=== PATIENT | female | born 1940 | race Caucasian/White ===

== ENCOUNTER → 2017-01-31 | Day surgery (SDC) | payer MEDICARE, BC ==
--- NOTE | 2017-01-29 15:46 | MH ---
cc: Pritesh ORTEZ M.D. DATE OF ADMISSION: 01/31/2017 ADMITTING DIAGNOSIS: Displaced fracture left olecranon ADMISSION HISTORY AND PHYSICAL This pleasant 76-year-old female is being admitted today for displaced a left olecranon fracture now for open reduction internal fixation. The patient sustained this 5 weeks ago in a trip and fall, she has had problems with a right ankle for almost a year and her right ankle gave out and she fell on her left elbow. OTHER PAST HISTORY: The patient has a history of a slight transient ischemic attack in the past for which she has been taking Plavix, otherwise no other medical problems. MEDICATIONS 1. Plavix. 2. Enalapril. REVIEW OF SYSTEMS Noncontributory. FAMILY HISTORY Noncontributory. PAST SURGICAL HISTORY: She has had a hysterectomy in the past. ALLERGIES She is allergic to PENICILLIN AND ASPIRIN. SOCIAL HISTORY: She smokes cigarettes and drinks alcohol. PHYSICAL EXAMINATION IN GENERAL: We find a 76-year female well-developed, well-nourished oriented x3 complaining of pain her left elbow. VITAL SIGNS: Blood pressure 126/82, pulse 88 regular, respirations 18, temperature 98.5, pulse oximetry 96% on room air. HEAD, EYES, EARS, NOSE, AND THROAT: Eyes Pupils equal, round, reactive to light and accommodation, extraocular muscles intact. Ears, nose, mouth clear. NECK: Supple. LUNGS: Clear. HEART: Regular rate. ABDOMEN: The abdomen was soft, positive bowel sounds, nontender. EXTREMITIES: The extremities reveal the left elbow to be tender, Unable to fully extend against gravity. NEUROVASCULAR: Neurovascularly intact to her fingers. IMPRESSION At this time is a completely displaced left olecranon fracture. PLAN Admission for open reduction internal fixation left olecranon fracture today. The patient given prescription postop pain control in the office. MD MARIAMA Mera/jovana /5:21 PM /3:43 PM
[~2017-01-31] VITALS: Ht 165.1 cm; Wt 69.7 kg
[~2017-01-31] MED LIST: *morphine SULFATE 8 MG/ML PERIprocedure ONLY ONE; ACETAMINOPHEN 1000 MG/100 ML VIAL IV ONE; ACETAMINOPHEN/HYDROcodone 325 MG/5 MG TAB PO PRN; BUPIVACAINE HCL PF 0.25% 30 ML VIAL ONE; CHLORHEXIDINE GLUCONATE 2 % 1 PACK (2 CLOTHS) TOPICAL PRN; CHLORHEXIDINE GLUCONATE 4% SOLN 120 ML BTL TOPICAL SCH; CLINDAMYCIN 900 MG/NS 100 ML IV SCH; DEXAMETHASONE SOD PHOS 4 MG/ML VIAL ONE; DO NOT ADM ANY ANTICOAGULANT DRUGS PRN; ENAL10TA7 PO; FAMOTIDINE 20 MG/2 ML VIAL ONE; INSULIN HUMAN REGULAR 1,000 UNITS/10 ML VIAL SQ PRN; LACTATED RINGER'S 1000 ML INJ 1,000 ML IV ONE; LACTATED RINGER'S 1000 ML IV PRN; MEPERIDINE HCL 50 MG/ML VIAL IM PRN; METOPROLOL TARTRATE 25 MG TAB PO PRN; MIDAZOLAM HCL 5 MG/5 ML VIAL ONE; NEOMYCIN/POLYMYXIN 1 ML G.U. IRRIGANT TOPICAL ONE; ONDANSETRON HCL 4 MG/2 ML VIAL IV PUSH ONE; ONDANSETRON ODT 4 MG TAB PO PRN; PLAV75TA29 PO; POVIDONE IODINE 5% (ANTISEPSIS KIT) 4 APPLICATIONS EACH NARE PRN; PROPOFOL 200 MG/20 ML AMP IV ONE; SODIUM CHLORID 0.9% 500 ML IV PRN; SODIUM CHLORIDE 0.9% INJ 100 ML ONE; ePHEDrine/NS 25 MG/5 ML SYR IV ONE; fentaNYL CITRATE 250 MCG/5 ML AMP ONE; methylPREDNISolone SOD SUCC 125 MG/2 ML VIAL ONE
[2017-01-31 08:19] VITALS: BP 166/93; PULSE 103; RESP 18; TEMP 98.9
[2017-01-31 08:41] LABS: AUTOMATED NEUTROPHIL # 5.6 TH/MM3 (1.8-7.7); BASOPHIL # 0.1 TH/MM3 (0-0.2); EOSINOPHIL # 0.1 TH/MM3 (0-0.4); EOSINOPHIL % 0.7 % (0.0-4.0); HEMATOCRIT 42.9 % (35.0-46.0); HEMO FLAGS DIFF FINAL; LYMPH % 28.6 % (9.0-44.0); LYMPHOCYTE # 2.5 TH/MM3 (1.0-4.8); MEAN CORPUSCULAR HGB CONC 33.7 % (32.0-36.0); MONO % 5.6 % (0.0-8.0); NEUT % 64.1 % (16.0-70.0); PLATELET COUNT 270 TH/MM3 (150-450); RED BLOOD COUNT 4.52 MIL/MM3 (4.00-5.30); RED CELL DISTRIBUTION WIDTH 14.4 % (11.6-17.2); WHITE BLOOD COUNT 8.8 TH/MM3 (4.0-11.0)
[2017-01-31 08:45] LABS: APTT (PATIENT) 25.6 SEC (24.3-30.1); PROTHROMBIN TIME - PATIENT 10.5 SEC (9.8-11.6)
[2017-01-31 08:50] LABS: ALT (GPT) 23 U/L (10-53); ANION GAP 9 MEQ/L (5-15); AST (GOT) 21 U/L (15-37); BLOOD UREA NITROGEN 8 MG/DL (7-18); CHLORIDE 109 MEQ/L (98-107); GLOMERULAR FILTRATION RATE 53 ML/MIN (>89); POTASSIUM 4.2 MEQ/L (3.5-5.1); SODIUM (NA) 143 MEQ/L (136-145)
[2017-01-31 08:53] LABS: ALKALINE PHOSPHATASE 72 U/L (45-117); TOTAL BILIRUBIN ADULT 0.4 MG/DL (0.2-1.0)
[2017-01-31 09:00] LABS: BACTERIA, URINE MOD /hpf; BLOOD, URINE TRACE (NEG); COMMENT (UR) CULTURE INDICATED; CULTURE IF INDICATED CULTURE INDICATED; GLUCOSE,URINE NEG (NEG); HYALINE CAST, URINE 4 /lpf (RARE); KETONE, URINE NEG (NEG); MUCUS URINE FEW /lpf (OCC); NITRITE,URINE NEG (NEG); SQUAMOUS EPITHELIAL CELL URINE 10 /hpf (0-5); TRANSITIONAL EPI CELLS, URINE <1 /hpf; URINE COLOR YELLOW (YELLW/STRAW)
--- NOTE | 2017-01-31 11:42 | RADRPT ---
EXAM DATE/TIME: 01/31/2017 11:21 [facility] COMPARISON: FLUOROSCOPY PORTABLE UP TO 1HR, January 31, 2017, 0:00. INDICATIONS : Post-op ORIF left olecranon. MEDICAL HISTORY : None. SURGICAL HISTORY : None. ENCOUNTER: Initial ACUITY: 1 day PAIN SCORE: Non-responsive. LOCATION: Left upper extremity FINDINGS: The patient is post plating and screw fixation of an olecranon process fracture. There is excellent a lignment of the fracture fragments post plating. CONCLUSION: 1. Excellent alignment of the fracture fragments post plating. Cecil Shepherd MD on January 31, 2017 at 11:39 Board Certified Radiologist. This report was verified electronically.
[2017-01-31 14:16] VITALS: BP 145/55; PULSE 85; RESP 16; TEMP 98; O2SAT 96
--- NOTE | 2017-01-31 15:21 | EKG ---
Date Performed: 01/31/2017 Time Performed: 08:24:39 PTAGE: 77 years EKG: Sinus rhythm WITH MARKED SINUS ARRHYTHMIA BORDERLINE ECG PREVIOUS TRACING : 12/04/2006 08.05 DOCTOR: Mike Nguyen Interpretating Date/Time 01/31/2017 15:20:32
--- NOTE | 2017-01-31 18:21 | MP ---
cc: Pritesh RIVAS DATE OF SURGERY 01/31/17 PREOPERATIVE DIAGNOSIS Displaced olecranon fracture left elbow POSTOPERATIVE DIAGNOSIS Displaced olecranon fracture left elbow SURGERY PERFORMED Open reduction internal fixation grafting left elbow fracture using Synthes plate and screws. SURGEON Dr. Drew Rivas BATCH UNLOADER BALA Tang ANESTHESIA General intubation PROCEDURE IN DETAIL was The patient was brought to the operating room, placed on the operating table in supine position. After successful induction of general anesthesia, the patient's left elbow and arm were prepped and draped in the usual manner. Keeping the elbow across the chest, a posterior approach was utilized 6 inches in length centering over the tip of the olecranon along the ulnar and distal humerus, carried down through subcutaneous tissue through the fascia to expose the periosteum over the proximal ulna which was removed with a periosteal elevator. The olecranon fracture was identified, curetted and held reduced with a clamp. The tissue over the tip of the olecranon was opened down to the bone for placement of an olecranon plate. Plate was firmly affixed to the bone using the appropriate length locking screws, three distal and four proximal to the fracture first compressing the fracture. One ml of DBX graft was utilized as well for better prospect of union. The AP and lateral views by C-arm revealed excellent reduction of the fracture. Good range of motion was appreciated. The wound was irrigated copiously with lactated Ringer's solution. Meticulous hemostasis achieved. The triceps was approximated together using #1 interrupted Vicryl sutures. Subcutaneous tissue approximated using interrupted running 2-0 and 4-0 Monocryl sutures. Steri-Strips, sterile dressing and posterior splint. Estimated blood loss 50 mL. Sponge and suture count correct. The patient tolerated the procedure well. The photographer assistant was utilized for positioning and suturing and use of retraction and exposure throughout the case and injection of 10 mL of Marcaine at the end of the case around the subcutaneous tissue. The patient tolerated procedure well and left the operating room in satisfactory condition. MD MARIAMA Mera/ /11:52 AM /6:09 PM
== END | disposition home or self-care (01) ==
LOC: HSDC 07:27
PROVIDERS: ATTEND Surgery
DX: S52.022A Displaced fracture of olecranon process without intraarticular extension of left ulna, initial encounter for closed fracture (principal); R82.99 Other abnormal findings in urine; W01.0XXA Fall on same level from slipping, tripping and stumbling without subsequent striking against object, initial encounter; Z01.810 Encounter for preprocedural cardiovascular examination; Z01.818 Encounter for other preprocedural examination; F17.210 Nicotine dependence, cigarettes, uncomplicated; Z86.73 Personal history of transient ischemic attack (TIA), and cerebral infarction without residual deficits
CPT/HCPCS: 01740; 24575; 73070; 76000; 80053; 81001; 85025; 85610; 85730; 87086; 93005; C1713; J0131; J1100; J2250; J2270; J2405; J2930; J3010; J7120